=== PATIENT | female | born 1975 | race Caucasian/White ===

== ENCOUNTER 2018-04-06 21:18 | Emergency (ER) | payer MEDICAID ==
[~2018-04-06] VITALS: Ht 152.4 cm; Wt 62.1 kg
[2018-04-06 21:42] VITALS: BP 129/78
--- NOTE | 2018-04-06 21:43 | NUR ---
PT BIBSELF. PT STATES SHE HAD SMALL RT THIGH LUMP FOR SEVERAL YRS. PT NOW C/O BURNING PAIN GOING DOWN RLE. PT STATES THE ACTUAL LUMP IS NONTENDER, SKIN INTACT. PT STATES PAIN IN CONSTANT, REST AND MOVEMENT. PT IS AAOX4. NAD NOTED. PT IS AMBULATORY. RESPIRATIONS EVEN AND UNLABORED. VSS. PT PLACED ON MONITOR AND GOWN, WAITING FOR MD EVALUATION
== END 2018-04-06 22:20 | disposition home or self-care (01) ==
LOC: ER 21:22
DX: G57.91 Unspecified mononeuropathy of right lower limb (principal); M79.604 Pain in right leg
CPT/HCPCS: 99283; A4606; Z7610